=== PATIENT | male | born 1985 | race Caucasian/White ===

== ENCOUNTER 2019-12-09 02:38 | Emergency (ER) | payer OTHER ==
[~2019-12-09] VITALS: Ht 188 cm; Wt 95.2 kg
[2019-12-09] MEDS ORDERED: SODIUM CHLORIDE FLUSH 10ML SYR IVF ONE (03:00)
[2019-12-09] MEDS ORDERED: KETOROLAC 30 MG/1 ML IVPush ONE (03:00)
[2019-12-09] MEDS ORDERED: SODIUM CHLORIDE 0.9% 1,000ML IVBOLUS ONE (03:00)
[2019-12-09] MEDS ORDERED: ONDANSETRON 2MG/ML, 2ML IVPush ONE (03:00)
[2019-12-09] MEDS ORDERED: ONDANSETRON 2MG/ML, 2ML ONE (03:07)
[2019-12-09] MEDS ORDERED: KETOROLAC 30 MG/1 ML ONE (03:08)
[2019-12-09] MEDS ORDERED: MORPHINE SULFATE 4 MG/ML, 1ML ONE ×2 (03:08→03:18)
[2019-12-09] MEDS: MORPHINE SULFATE 4 MG/ML, 1ML IVPush PRN ×2 (03:10→03:25)
--- NOTE | 2019-12-09 03:27 | NUR ---
PIV STARTED PT MEDICATED PER CHE BOLANOS, CALL LIGHT IN REACH, URINE SAMPLE WALKED TO LAB. PT TO CT AT THIS TIME
[2019-12-09] MEDS ORDERED: CEFTRIAXONE 250 MG IM ONE (03:30)
[2019-12-09] MEDS ORDERED: AZITHROMYCIN 500 MG TABLET PO ONE (03:30)
--- NOTE | 2019-12-09 03:30 | NUR ---
PT BACK FROM CT
--- NOTE | 2019-12-09 03:40 | NUR ---
LAB CALLED AND STATES CBC WAS CLOTTED AND THEY WILL NEED TO REDRAW.
[2019-12-09 03:44] LABS: ALANINE AMINOTRANSFERASE 28 U/L (12-78); ALBUMIN 3.8 g/dL (3.4-5.0); ANION GAP 2 mmol/L (5-15); CALCIUM 9.8 mg/dL (8.5-10.1); CHLORIDE 107 mmol/L (98-107); CREATININE 0.99 mg/dL (0.7-1.3)
[2019-12-09 03:46] LABS: ALKALINE PHOSPHATASE 91 U/L (45-117); BILIRUBIN,TOTAL 0.4 mg/dL (0.2-1.0); TOTAL PROTEIN 7.4 g/dL (6.4-8.2)
[2019-12-09 03:49] LABS: MICROSCOPIC INDICATED
[2019-12-09 03:59] LABS: BASOPHILS % (AUTO) 0 % (0-1); EOSINOPHILS % (AUTO) 1 % (1-7); LYMPHOCYTES % (AUTO) 12 % (22-44); MEAN CORPUSCULAR HEMOGLOBIN 32.9 pg (27.5-34.5); MEAN CORPUSCULAR HGB CONC 33.4 g/dL (33.2-36.2); MEAN PLATELET VOLUME 7.4 fL (7.4-10.4); MONOCYTES % (AUTO) 8 % (2-9); NEUTROPHILS % (AUTO) 79 % (42-75); PLATELET COUNT 259 x10^3/uL (130-400); RED BLOOD COUNT 4.75 x10^6/uL (4.38-5.82); RED CELL DISTRIBUTION WIDTH 12.8 % (9.4-14.8)
[2019-12-09 04:00] LABS: MD NO
[2019-12-09] MEDS ORDERED: AZITHROMYCIN 250 MG TABLET ONE (04:08)
[2019-12-09] MEDS ORDERED: CEFTRIAXONE 250 MG ONE (04:08)
[2019-12-09 04:12] VITALS: BP 157/93
--- NOTE | 2019-12-09 04:42 | NUR ---
Patient/Caregiver given discharge instructions and they have confirmed that they understand the instructions. Patient ambulatory with steady gait. PIV DC PRIOR TO PT LEAVING
== END 2019-12-09 04:55 | disposition home or self-care (01) ==
LOC: ED 03:08
DX: N20.0 Calculus of kidney (principal); N13.30 Unspecified hydronephrosis; R10.32 Left lower quadrant pain; R10.12 Left upper quadrant pain
CPT/HCPCS: 36415; 74176; 80053; 81001; 83690; 85025; 87491; 87591; 96361; 96372; 96374; 96375; 99284; J0696; J1885; J2270; J2405; J7030